=== PATIENT | female | born 1975 | race Caucasian/White ===

== ENCOUNTER 2017-12-09 13:15 | Emergency (ER) | END 2017-12-09 17:05 | disposition home or self-care (01) ==

== ENCOUNTER 2018-03-08 03:40 | Emergency (ER) | END 2018-03-08 06:40 | disposition home or self-care (01) ==

== ENCOUNTER 2018-03-24 08:01 | Emergency (ER) | END 2018-03-24 11:17 | disposition home or self-care (01) ==